=== PATIENT | male | born 1945 | race Caucasian/White ===

== ENCOUNTER 2019-11-27 08:31 | Emergency (ER) | payer OTHER, SELFPAY ==
[2019-11-27] VITALS (10 sets, daily range): BP systolic 118–162; BP diastolic 59–81; PULSE 44–64; RESP 16; TEMP 36.4; O2SAT 93–97
--- NOTE | 2019-11-27 09:01 | DI.CT.S_ITS ---
PROCEDURE: CT ABDOMEN PELVIS WO CON INDICATIONS: kidney stone, flank pain right TECHNIQUE: Noncontrast 5 mm thick sections acquired from the diaphragms to the symphysis. 5 mm thick coronal and sagittal reformats were then performed. For radiation dose reduction, the following was used: automated exposure control, adjustment of mA and/or kV according to patient size. COMPARISON: [facility], CT, KIDNEY/ URETER/BLADDER, 04/30/2010, 15:26. FINDINGS: Image quality: Excellent. Lung bases: Lung bases are clear. Heart is enlarged. Postsurgical changes compatible with a aortic valve replacement noted. Urinary system: Both kidneys are normal in size. 0.5 x 0.7 x 1.0 cm stone noted in the distal right ureter causing severe right sided hydroureteronephrosis. 5 x 7 mm nonobstructing stone noted in the lower pole of the right kidney. 1 cm diameter nonobstructing stone noted in the midpole of the right kidney. Multiple large nonobstructing staghorn calculi noted in the left kidney, left renal calyces and left renal pelvis. Left ureter follows a normal course and normal caliber. Numerous calcified stones noted in dependent portion of the urinary bladder ranging in size from 0.6-1.8 cm. Other solid organs: Liver is normal in size. Gallbladder contains numerous calcified gallstones. Pancreas is normal in contours. Spleen is normal in size. No adrenal nodules. Peritoneum and bowel: Small hiatal hernia. Unenhanced bowel loops demonstrate normal wall thickness and caliber. No free air. Small amount of free right perinephric fluid noted. Nodes and vessels: No retroperitoneal or mesenteric adenopathy by size criteria. Aorta and inferior vena cava are normal in caliber. Scattered atherosclerotic calcifications involving the abdominal and pelvic vasculature. Abdominal wall: No ventral hernias. Pelvis: No free pelvic fluid. No inguinal adenopathy. Right fat-containing inguinal hernia. Bones: No suspicious bony lesions. No vertebral body compression fractures. Spine degenerative disc disease and facet arthropathy. IMPRESSION: 1. 0.5 x 0.7 x 1.0 cm distal right ureteral stone causing severe right-sided hydroureteronephrosis. Small amount of free right perinephric fluid. Forniceal rupture cannot be excluded 2. Multiple nonobstructing right renal stones. 3. Multiple nonobstructing left renal staghorn calculi. 4. Numerous calcified urinary bladder stones. 5. Colonic diverticulosis without evidence of diverticulitis. 6. Cholelithiasis. 7. Cardiomegaly. Dictated by: Vicky Cabrera MD, PhD on 11/27/2019 at 9:42 Approved by: Vicky Cabrera MD, PhD on 11/27/2019 at 9:50
[2019-11-27] MEDS: ONDANSETRON 4 MG/2 ML INJ IV (09:13)
[2019-11-27] MEDS: HYDROMORPHONE 1 MG INJ IV (09:13)
[2019-11-27 09:15] LABS: Add Manual Diff / Slide Review NO; Basophils Absolute Auto 0 /uL (0-100); Basophils Percent Auto 0.4 % (0-2); Eosinophils Absolute Auto 100 /uL (0-450); Eosinophils Percent Auto 1.2 % (2-4); Hematocrit 38.4 % (41-53); Hemoglobin 13.2 g/dL (13.5-17.5); Lymphocytes Absolute Auto 900 /uL (1100-4500); Lymphocytes Percent Auto 11.3 % (25-40); Mean Corpuscular HGB Conc 34.4 % (30-36); Mean Corpuscular Hemoglobin 30.7 PG (26-34); Mean Corpuscular Volume 89.2 fL (80-100); Monocytes Absolute Auto 700 /uL (0-900); Monocytes Percent Auto 8.5 % (3-14); Neutrophils Absolute Auto 6500 /uL (1500-7000); Neutrophils Percent Auto 78.6 % (50-75); Platelet Count 135 X10^3/uL (150-400); Red Blood Cell Count 4.31 X10^6/uL (4.5-5.9); Red Cell Distribution Width 13.3 % (11.6-14.8); White Blood Cell Count 8.3 X10^3/uL (4.5-11.0)
[2019-11-27 09:24] LABS: Alanine Aminotransferase 31 IU/L (<50); Albumin 4.2 g/dL (3.5-5.0); Albumin Globulin Ratio 1.6 (1.0-2.8); Alkaline Phosphatase 77 U/L (38-126); Aspartate Aminotransferase 38 IU/L (17-59); BUN Creatinine Ratio 26.8 (6-22); Bilirubin Total 2.6 mg/dL (0.2-1.3); Blood Urea Nitrogen 37 mg/dL (9-20); Calcium 9.6 mg/dL (8.4-10.2); Carbon Dioxide 25 mmol/L (22-32); Chloride 106 mmol/L (98-107); Estimated Glomerular Filt Rate 50.1 mL/min (>60); Globulin 2.7 g/dL (1.7-4.1); Glucose 97 mg/dL (80-110); HEMOLYSIS 65 (0-50); Potassium 4.8 mmol/L (3.4-5.1); Sodium 137 mmol/L (137-145); Total Protein 6.9 g/dL (6.3-8.2)
--- NOTE | 2019-11-27 10:20 | ED.ABDPAIN ---
HPI - Abdominal Pain General Chief Complaint: Abdominal Pain Stated Complaint: kidney stone Time Seen by Provider: 11/27/19 08:48 Source: patient Mode of arrival: Ambulatory Limitations: no limitations History of Present Illness HPI narrative: CC: Right flank pain HPI: The patient is a 74-year-old male who has a history of kidney stones. He states that he has been having intermittent kidney stones for the last 4 years. Last night he developed flank pain at 4:00 p.m. which is just persisted until this morning. The pain has been constant. He has had no relief from naproxen which he normally takes nor from OxyContin which is an old prescription. He denies any fall or injury. Earlier in the week he noted that he had blood in his urine. The pain on arrival was 8/10 in intensity in was not intense dull achy discomfort. At the time that I am seeing him it is 5 to 6/10. He denies having any fever chills or sweats. He has had no nausea vomiting diarrhea melena hematochezia. He has had no significant urinary frequency or urgency. He has had no kidney infections or bladder infections. Related Data Home Medications Medication Instructions Recorded Confirmed doxazosin 8 mg PO DAILY 11/27/19 11/27/19 metoprolol succinate 25 mg PO DAILY 11/27/19 11/27/19 pravastatin 20 mg PO DAILY 11/27/19 11/27/19 Previous Rx's Medication Instructions Recorded ondansetron HCl [Zofran] 4 mg PO Q6H PRN #15 tab 11/27/19 oxycodone 5 mg PO Q4H PRN #12 tab 11/27/19 tamsulosin [Flomax] 0.8 mg PO BEDTIME #7 cap 11/27/19 tramadol 50 mg PO Q6H #20 tab 11/27/19 Allergies Allergy/AdvReac Type Severity Reaction Status Date / Time No Known Drug Allergies Allergy Verified 11/27/19 09:13 Review of Systems Review of Systems Narrative: Review of systems were all negative except for those mentioned in the history of present illness. Patient History Medical History Hypertension (Acute) Social History Smoking Status: Never smoker Smoking Status: Never smoker alcohol intake frequency: 0-2 drinks per day Substance Use Type: does not use Exam Narrative Exam Narrative: PHYSICAL EXAM: CONSTITUTIONAL: Awake, Alert, Oriented, Coherent, Cooperative in NAD. . HEAD: AT/NC EENT: PERRL, FROM of eyes, NOSE:No epistaxis or nasal drainage MOUTH:Oral mucosa is moist and pink, posterior pharynx is without erythema or exudate. NECK: Supple, no obvious JVD, Trachea is midline without stridor. SPINE: Palpation of the cervical, Thoracic, Lumbar or Sacral spine reveals no gross deformity or tenderness. No CVA tenderness. THORAX: No deformity, retractions, chest wall tenderness. LUNGS: Clear, symmetrical breath sounds without respiratory distress. HEART: Normal heart tones, regular rhythm and rate without murmur. ABDOMEN: Soft, non-tender, no guarding, rebound, rigidity or palpable mass. EXTREMITIES: No edema, deformity, tenderness . SKIN: No rash, bruising, NEURO: Awake, alert, oriented, conversive, cranial nerves II-XII are symmetrical , moves all 4 extremities and is ambulatory. Initial Vital Signs Initial Vital Signs: Vital Signs Temperature 97.6 F 11/27/19 08:48 Pulse Rate 57 L 11/27/19 08:48 Respiratory Rate 16 11/27/19 08:48 Blood Pressure 162/81 H 11/27/19 08:48 Pulse Oximetry 97 11/27/19 08:48 Course Course Course Narrative: 1021: CT reveals that the patient has a 1 cm x 0.7 cm x 1 cm obstructing right ureteral stone with severe right hydronephrosis. I will call Dr. Juan becerra and see if he is available to admit the patient 1230 : Patient is currently pain-free. Dr. Swanson requested a urine culture on the patient before he is discharged. Orders Ordered: ED Orders 11/27/19 12:20 Urinalysis and Microscopic Stat Urine Culture Stat Discontinued Medications Hydromorphone HCl (Dilaudid) 1 mg IV NOW ONE Stop: 11/27/19 08:58 Last Admin: 11/27/19 09:13 Dose: 1 mg Documented by: CAROL ANN Sodium Chloride (Normal Saline 0.9%) 1,000 mls @ 1,000 mls/hr IV BOLUS ONE Stop: 11/27/19 11:51 Last Infusion: 11/27/19 12:12 Dose: 0 mls/hr Documented by: CAROL ANN Admin: 11/27/19 11:00 Dose: 1,000 mls/hr Documented by: NORMAN Ondansetron HCl (Zofran) 4 mg IV NOW ONE Stop: 11/27/19 09:00 Last Admin: 11/27/19 09:13 Dose: 4 mg Documented by: CAROL ANN Vital Signs Vital signs: Vital Signs - 8 hr 11/27/19 08:48 11/27/19 09:10 11/27/19 09:33 Temperature 97.6 F Pulse Rate 57 L 49 L 64 Respiratory Rate 16 Blood Pressure 162/81 H Pulse Oximetry 97 95 94 11/27/19 10:00 11/27/19 10:30 11/27/19 10:31 Temperature Pulse Rate 52 L 49 L 46 L Respiratory Rate Blood Pressure 130/62 Pulse Oximetry 94 93 95 11/27/19 11:00 11/27/19 11:31 Temperature Pulse Rate Respiratory Rate Blood Pressure 142/66 H 132/60 Pulse Oximetry MDM - Abdominal Pain Lab Data Result diagrams: 11/27/19 09:00 11/27/19 09:00 Labs: Lab Results 11/27/19 11/27/19 11/27/19 Range/Units 09:00 09:00 12:20 WBC 8.3 (4.5-11.0) X10^3/uL RBC 4.31 L (4.5-5.9) X10^6/uL Hgb 13.2 L (13.5-17.5) g/dL Hct 38.4 L (41-53) % MCV 89.2 (80-100) fL MCH 30.7 (26-34) PG MCHC 34.4 (30-36) % RDW 13.3 (11.6-14.8) % Plt Count 135 L (150-400) X10^3/uL Neut % (Auto) 78.6 H (50-75) % Lymph % (Auto) 11.3 L (25-40) % [place] % (Auto) 8.5 (3-14) % Eos % (Auto) 1.2 L (2-4) % Baso % (Auto) 0.4 (0-2) % Neut # (Auto) 6500 (6510-7441) /uL Lymph # (Auto) 900 L (2109-5182) /uL [place] # (Auto) 700 (0-900) /uL Eos # (Auto) 100 (0-450) /uL Baso # (Auto) 0 (0-100) /uL Sodium 137 (137-145) mmol/L Potassium 4.8 (3.4-5.1) mmol/L Chloride 106 (98-107) mmol/L Carbon Dioxide 25 (22-32) mmol/L BUN 37 H (9-20) mg/dL Creatinine 1.38 H (0.66-1.25) mg/dL Estimated GFR 50.1 L (>60) mL/min BUN/Creatinine Ratio 26.8 H (6-22) Glucose 97 (80-110) mg/dL Calcium 9.6 (8.4-10.2) mg/dL Total Bilirubin 2.6 H (0.2-1.3) mg/dL AST 38 (17-59) IU/L ALT 31 (<50) IU/L Alkaline Phosphatase 77 (38-126) U/L Total Protein 6.9 (6.3-8.2) g/dL Albumin 4.2 (3.5-5.0) g/dL Globulin 2.7 (1.7-4.1) g/dL Albumin/Globulin Ratio 1.6 (1.0-2.8) Urine Color Yellow Urine Appearance Clear Urine pH 7.0 (4.5-8.0) Ur Specific [place] 1.015 (1.000-1.035) Urine Protein Negative (Negative) Urine Glucose (UA) Negative (Negative) g/dL Urine Ketones 1+ H (NEGATIVE) Urine Occult Blood 3+ H (Negative) Urine Nitrate Negative (Negative) Urine Bilirubin Negative (NEGATIVE) Urine Urobilinogen 0.2 (0.2) E.U./dL Ur Leukocyte Esterase Trace H (NEGATIVE) Urine RBC 10-30/hpf H (0-5/HPF) Urine WBC None seen (0-5/HPF) Ur Squamous Epith Cells 1-5 /hpf (0-5/HPF) Urine Bacteria None seen (None) Ur Culture Indicated? Cult not indicated Point of care testing: Urine Dip Bedside Urine Glucose Negative Bedside Urine Bilirubin - Negative Bedside Urine Ketone ++ 40 Urine Specific [place] 1.015 Bedside Urine Occult Blood +++ Bedside Urine pH 6.5 Bedside Urine Protein +/- 15 Bedside Urine Urobilinogen - Negative Bedside Urine Nitrite - Negative Bedside Urine Leukocytes + 70 Esterase Discharge Plan Departure Patient Disposition: Home Clinical Impression: Ureteral colic, Acute right flank pain, Calculus, ureteral, Hydronephrosis Discharge Date/Time: 11/27/19 13:03 Instructions: DI for Kidney Stones Activity Restrictions/Additional Instructions: 1. Follow-up with Dr. Swanson Urologist to evaluate your obstructed ureter and kidney stone on the right side. 2. Despite the pain medications prescribed if you develop intolerable pain and discomfort uncontrolled by the medications you need to return to the emergency department to be further evaluated. 3. If you developed shortness of breath, fever, persistent nausea and vomiting you need to return to the emergency department. 4. Take the tramadol as prescribed for your pain and discomfort 5. Take the Flomax as prescribed at bedtime 6. Take Tylenol every 6 hours for pain and discomfort. 7. Take oxycodone your breakthrough medications for pain and discomfort. Prescriptions: New tramadol 50 mg tablet 50 mg PO Q6H Qty: 20 RF: 1 tamsulosin [Flomax] 0.4 mg capsule 0.8 mg PO BEDTIME Qty: 7 RF: 0 ondansetron HCl [Zofran] 4 mg tablet 4 mg PO Q6H PRN (Reason: nausea and vomiting) Qty: 15 RF: 0 oxycodone 5 mg tablet 5 mg PO Q4H PRN (Reason: pain) Qty: 12 RF: 0 No Action doxazosin 8 mg tablet 8 mg PO DAILY RF: 0 pravastatin 20 mg tablet 20 mg PO DAILY RF: 0 metoprolol succinate 25 mg tablet extended release 24 hr 25 mg PO DAILY RF: 0 Referrals: Sadia Carbajal PA-C [Primary Care Provider] -
[2019-11-27] MEDS: SODIUM CHLORIDE 0.9% 1,000 ML 1000 ML IV (11:00)
[2019-11-27 13:06] LABS: Bacteria Urine None Seen; WBC Urine None Seen (0-5/HPF)
[2019-11-27 13:24] LABS: Appearance Urine UA CLEAR; Bilirubin Urine UA NEGATIVE (NEGATIVE); Color Urine UA YELLOW; Glucose Urine UA NEGATIVE (Negative); Ketones Urine UA 1+ (NEGATIVE); Leukocyte Esterase Urine UA TRACE (NEGATIVE); Nitrite Urine UA NEGATIVE (Negative); Occult Blood Urine UA 3+ (Negative); Protein Urine UA NEGATIVE (Negative); Specific Gravity Urine UA 1.015 (1.000-1.035); Urobilinogen Urine UA 0.2 E.U./dL (0.2)
[2019-11-27 13:31] LABS: RBC Urine 10-30/HPF (0-5/HPF)
[2019-11-27 13:32] LABS: Culture Indicated Urine Cult Not Indicated; Squamous Epithelial Cell Urine 1-5 /HPF (0-5/HPF)
== END 2019-11-27 13:03 | disposition home or self-care (01) ==
PROVIDERS: Emergency Provider Emergency Medicine; Family Provider Physician Assistant Medical; PCP Physician Assistant
DX: N13.2 Hydronephrosis with renal and ureteral calculous obstruction (principal); Z87.442 Personal history of urinary calculi; R10.9 Unspecified abdominal pain
CPT/HCPCS: 36415; 74176; 80053; 81001; 81003; 85025; 87086; 96361; 96374; 96375; 99284; J1170; J2405

== ENCOUNTER → 2019-12-11 13:59 | Outpatient (CLI) | payer OTHER, SELFPAY ==
--- NOTE | 2019-12-11 14:06 | DI.RAD.S_ITS ---
PROCEDURE: XR KUB INDICATIONS: Kidney Stone TECHNIQUE: One view of the abdomen acquired. COMPARISON: [facility], CT, CT ABDOMEN PELVIS WO CON, 11/27/2019, 9:11. [facility], CR, KUB XRAY (1 VIEW ABDOMEN), 07/12/2013, 10:25. [facility], CR, KUB XRAY (1 VIEW ABDOMEN), 05/01/2013, 10:32. FINDINGS: Surgical changes and devices: None. Bowel: Bowel gas pattern is normal. Soft tissues: The CT scanning performed 11/27/19 had identified numerous calculi within the collecting system of the left kidney, and a relatively small degree of calculi at the collecting system of the right kidney. However, there was severe hydronephrosis on the right associated with a distal right ureteral stone. Unfortunately the bladder also contains a multitude of stones varying in size, and these overlie the expected area of the distal right ureteral stone previously present. Therefore this plain film imaging cannot assess for resolution of hydronephrosis on the right or resolution of the calculus previously identified only several weeks ago within the lower aspect of the right ureter. Visualized solid organ contours appear normal in size. Bones: No suspicious bony lesions. IMPRESSION: Multiple rib urinary tract stones are seen. The bladder calculi present overlie the expected position of the previously documented obstructive distal right ureteral stone producing severe right hydronephrosis. A follow-up CT scan or ultrasound scanning may be warranted for more accurate assessment for presence of hydronephrosis and the distal ureteral stone. CT would be preferred if possible. Dictated by: Gavino Morales M.D. on 12/11/2019 at 15:34 Approved by: Gavino Morales M.D. on 12/11/2019 at 15:37
== END ==
PROVIDERS: Family Provider Physician Assistant Medical; PCP Physician Assistant; Referring Provider Specialist; Visit Provider Specialist
DX: N13.2 Hydronephrosis with renal and ureteral calculous obstruction (principal); N21.0 Calculus in bladder; N23 Unspecified renal colic
CPT/HCPCS: 74018

== ENCOUNTER → 2019-12-18 10:25 | Outpatient (CLI) | payer OTHER, SELFPAY | PROVIDERS: Family Provider Physician Assistant Medical; PCP Physician Assistant; Visit Provider Specialist | DX: N39.0 Urinary tract infection, site not specified (principal); N20.1 Calculus of ureter; N20.0 Calculus of kidney; N40.1 Benign prostatic hyperplasia with lower urinary tract symptoms; N13.8 Other obstructive and reflux uropathy; N52.9 Male erectile dysfunction, unspecified; N43.3 Hydrocele, unspecified; Z87.442 Personal history of urinary calculi | CPT/HCPCS: 51798; 81002; 87086; 99214 ==

== ENCOUNTER → 2020-01-03 09:51 | Outpatient (CLI) | payer OTHER, SELFPAY ==
--- NOTE | 2020-01-03 10:01 | DI.CT.S_ITS ---
PROCEDURE: CT KIDNEY URETER BLADDER (KUB) INDICATIONS: ureteral calculus TECHNIQUE: Noncontrast 5 mm thick sections acquired from the diaphragms to the symphysis. 5 mm thick coronal and sagittal reformats were then performed. For radiation dose reduction, the following was used: automated exposure control, adjustment of mA and/or kV according to patient size. COMPARISON: [facility], CT, CT ABDOMEN PELVIS WO CON, 11/27/2019, 9:11. [facility], CT, KIDNEY/ URETER/BLADDER, 04/30/2010, 15:26. FINDINGS: Image quality: Excellent. Lung bases: Lung bases are clear. Cardiomegaly, with four-chamber enlargement. Previous cardiac surgery. Urinary system: Right kidney: Multiple nonobstructing stones including an upper pole stone measuring approximately 7 mm and a lower pole stone measuring approximately 6 mm. The hydronephrosis which was present on 11/27/19 has resolved. Right ureter: Previous distal ureteral stone no longer present. Normal caliber ureter. Left kidney: Numerous sizable nonobstructive stones, with probable developing partial staghorn calculus. Findings include renal pelvic stones. There is a UPJ stone which now measures approximately 1.4 cm. There is no associated hydronephrosis. Left ureter: Unremarkable Bladder: There are numerous stones in the bladder. No bladder wall thickening. Prostate is enlarged. Other solid organs: Liver is normal in size. Gallbladder contains numerous small stones. There is no gallbladder wall thickening . Pancreas is normal in contours. Spleen is normal in size. No adrenal nodules. Peritoneum and bowel: Unenhanced bowel loops demonstrate normal wall thickness and caliber. No free fluid or air. Sigmoid diverticulosis without evidence of diverticulitis. Nodes and vessels: No retroperitoneal or mesenteric adenopathy by size criteria. Aorta and inferior vena cava are normal in caliber. Abdominal wall: No ventral hernias. Pelvis: No free pelvic fluid. Bilateral inguinal hernias containing fat. Bones: No suspicious bony lesions. No vertebral body compression fractures. IMPRESSION: 1. Interval passage of distal right ureteral stone with resolution of right hydronephrosis. 2. Nonobstructing right renal stones. 3. Extensive nonobstructive left renal stones. A partial staghorn calculus is likely forming. Findings include a 1.4 cm left UPJ stone without hydronephrosis. 4. Numerous bladder stones. 5. 4 chamber cardiomegaly. 6. Prostate enlargement. 7. Bilateral inguinal hernias containing fat. Dictated by: Kushal Reid M.D. on 01/03/2020 at 10:54 Approved by: Kushal Reid M.D. on 01/03/2020 at 11:09
== END ==
PROVIDERS: Family Provider Physician Assistant Medical; PCP Physician Assistant; Referring Provider Physician Assistant; Visit Provider Specialist
DX: N20.1 Calculus of ureter (principal); N20.0 Calculus of kidney; N21.0 Calculus in bladder; K80.20 Calculus of gallbladder without cholecystitis without obstruction; K40.20 Bilateral inguinal hernia, without obstruction or gangrene, not specified as recurrent; N40.0 Benign prostatic hyperplasia without lower urinary tract symptoms; I51.7 Cardiomegaly
CPT/HCPCS: 74176

== ENCOUNTER → 2020-04-01 10:31 | Outpatient (CLI) | payer OTHER, SELFPAY | PROVIDERS: Family Provider Physician Assistant Medical; PCP Physician Assistant; Visit Provider Specialist | DX: N39.0 Urinary tract infection, site not specified (principal); N20.0 Calculus of kidney; N21.0 Calculus in bladder; Z87.442 Personal history of urinary calculi; Z87.448 Personal history of other diseases of urinary system | CPT/HCPCS: 81002; 87086; 99214 ==

== ENCOUNTER 2021-02-02 00:53 | Emergency (ER) | payer OTHER, SELFPAY ==
[2021-02-02 01:08] VITALS: BP 161/77; PULSE 60; RESP 16; TEMP 36.5; O2SAT 98; BMI 25.1
[2021-02-02] MEDS: SODIUM CHLORIDE 0.9% 1,000 ML 1000 ML IV (01:16)
[2021-02-02] MEDS: ONDANSETRON 4 MG/2 ML INJ IV (01:18)
[2021-02-02] MEDS: KETOROLAC 30 MG/ML VIAL IV (01:18)
[2021-02-02 01:21] LABS: Alanine Aminotransferase 30 IU/L (<50); Albumin Globulin Ratio 1.5 (1.0-2.8); Alkaline Phosphatase 85 U/L (38-126); Aspartate Aminotransferase 27 IU/L (17-59); BUN Creatinine Ratio 34.7 (6-22); Bilirubin Total 1.6 mg/dL (0.2-1.3); Blood Urea Nitrogen 34 mg/dL (9-20); Carbon Dioxide 25 mmol/L (22-32); Chloride 106 mmol/L (98-107); Estimated Glomerular Filt Rate > 60.0 mL/min (>60); Globulin 2.6 g/dL (1.7-4.1); Glucose 155 mg/dL (80-110); HEMOLYSIS < 15 (0-50); Lipase 39 U/L (23-300); Potassium 4.5 mmol/L (3.4-5.1); Sodium 139 mmol/L (137-145); Total Protein 6.6 g/dL (6.3-8.2)
[2021-02-02 01:23] LABS: Add Manual Diff / Slide Review NO; Basophils Absolute Auto 100 /uL (0-100); Basophils Percent Auto 1.3 % (0-2); Eosinophils Absolute Auto 100 /uL (0-450); Eosinophils Percent Auto 1.4 % (2-4); Hematocrit 40.8 % (41-53); Hemoglobin 13.7 g/dL (13.5-17.5); Lymphocytes Absolute Auto 800 /uL (1100-4500); Lymphocytes Percent Auto 8.3 % (25-40); Mean Corpuscular HGB Conc 33.5 % (30-36); Mean Corpuscular Hemoglobin 30.2 PG (26-34); Mean Corpuscular Volume 90.2 fL (80-100); Monocytes Absolute Auto 200 /uL (0-900); Monocytes Percent Auto 1.9 % (3-14); Neutrophils Absolute Auto 8400 /uL (1500-7000); Neutrophils Percent Auto 87.1 % (50-75); Platelet Count 159 X10^3/uL (150-400); Red Blood Cell Count 4.53 X10^6/uL (4.5-5.9); Red Cell Distribution Width 13.7 % (11.6-14.8); White Blood Cell Count 9.7 X10^3/uL (4.5-11.0)
--- NOTE | 2021-02-02 01:38 | DI.CT.S_ITS ---
PROCEDURE: CT KIDNEY URETER BLADDER (KUB) INDICATIONS: right flank pain TECHNIQUE: Axial sections were acquired from the lung bases to the pubic symphysis. Coronal and sagittal reformats were performed. For radiation dose reduction, the following was used: automated exposure control, adjustment of mA and/or kV according to patient size. COMPARISON: [facility], CT, CT KIDNEY URETER BLADDER (KUB), 01/03/2020, 9:53. FINDINGS: Image quality: Excellent. Lung bases: Mild dependent atelectasis. No pleural effusion. Heart: Cardiomegaly. Aortic valvular replacement. Coronary artery calcifications. Post median sternotomy. URINARY: Right Kidney: Severe hydroureteronephrosis. Mild stranding surrounding the right kidney. 3 nonobstructing kidney stones. Largest at the superior pole measuring 0.8 cm. Right Ureter: Obstructing calculus in the distal right ureter measuring 1.1 x 0.8 x 0.7 cm. 780 Hounsfield units. Left Kidney: No hydronephrosis. Multiple kidney stones. Several stones within the renal pelvis. Largest measuring 1.4 cm. Left kidney is somewhat atrophic compared to the right. Overall this appears similar to December 2019. Left Ureter: No hydroureter. Bladder: Multiple stones in the urinary bladder (greater than 10). A larger stone measures 1.5 cm. ABDOMEN: Liver: Unremarkable. Gallbladder: Multiple layering gallstones. Gallbladder is not significantly distended. Biliary ducts: Unremarkable. Pancreas: Unremarkable. Spleen: Unremarkable. Adrenal Glands: Unremarkable. Stomach and Bowel: No small bowel obstruction. Diverticulosis. No diverticulitis. The appendix is not seen. Peritoneum: No abnormal intraperitoneal fluid. No free air. Ventral Wall: No hernia. Abdominal Nodes: No enlarged retroperitoneal or mesenteric lymph nodes. Vessels: Aorta and inferior vena cava are normal in size. PELVIS: Pelvic Organs: Bilateral hydroceles. Pelvic Nodes: Unremarkable. Miscellaneous: Right inguinal hernia. The bladder is slightly herniated into this hernia sac. Bones: No compression fracture. Mild to moderate DDD most pronounced at L5-S1. IMPRESSION: 1. Obstructing calculus at the distal right ureter measuring 1.1 x 0.8 x 0.7 cm. Severe right hydroureteronephrosis. 2. Several additional bilateral nonobstructing kidney stones. The left kidney appears somewhat atrophic. 3. Numerous bladder calculi. 4. Cholelithiasis. 5. Right inguinal hernia. 6. Bilateral hydroceles. This report is concordant with the overnight preliminary interpretation. Dictated by: Panchito Day M.D. on 02/02/2021 at 9:56 Approved by: Panchito Day M.D. on 02/02/2021 at 10:08
[2021-02-02] MEDS: HYDROMORPHONE 0.5 MG INJ IV ×2 (02:45→03:21)
[2021-02-02 03:55] VITALS: BP 125/76; PULSE 88; RESP 16; O2SAT 96
[2021-02-02 03:59] LABS: Bacteria Urine None Seen
--- NOTE | 2021-02-02 04:10 | ED_ITS ---
HPI - Back Pain/Injury General Chief Complaint: Back Pain/Injury Stated Complaint: R flank Pain Time Seen by Provider: 02/02/21 01:00 History of Present Illness HPI Narrative: Patient is a 75-year-old male who has history of kidney stones presenting with right-sided kidney stone. He said he was doing well until 730 this evening when he started having right flank pain. His sugar is radiating around the front but this certainly feels like when he other kidney stones. Thinks he had a kidney stone earlier this week on the left knee past without any problem. He is followed by Dr. Swanson for Urology. He was shaking at home. He has had nausea and vomiting as well. No fever or chills. Pain comes goes of. No chest pain. Related Data Home Medications Medication Instructions Recorded Confirmed metoprolol succinate 25 mg 25 mg PO DAILY 11/27/19 04/01/20 tablet,extended release 24 hr pravastatin 20 mg tablet 20 mg PO DAILY 11/27/19 04/01/20 aspirin 81 mg tablet,delayed 81 mg PO DAILY 12/18/19 04/01/20 release (Adult Aspirin Regimen) doxazosin 8 mg tablet 8 mg PO DAILY 12/18/19 04/01/20 Previous Rx's Medication Instructions Recorded ondansetron HCl 4 mg tablet 4 mg PO Q6H PRN #15 tab 11/27/19 (Zofran) oxycodone 5 mg tablet 5 mg PO Q4H PRN #12 tab 11/27/19 tramadol 50 mg tablet 50 mg PO Q6H #20 tab 11/27/19 potassium citrate 10 mEq (1,080 10 meq PO TID #270 tab 04/01/20 mg) tablet,extended release tamsulosin 0.4 mg capsule See Rx Instructions .ROUTE 04/22/20 .COMPLEX #180 cap finasteride 5 mg tablet See Rx Instructions .ROUTE 12/06/20 .COMPLEX #90 tab ondansetron 4 mg disintegrating 4 mg PO Q6HR PRN #10 tab 02/02/21 tablet oxycodone-acetaminophen 5 mg-325 1 tab PO Q6H PRN #10 tab 02/02/21 mg tablet (Percocet) sulfamethoxazole 800 1 tab PO BID 7 Days #14 tab 02/02/21 mg-trimethoprim 160 mg tablet (Bactrim DS) Allergies Allergy/AdvReac Type Severity Reaction Status Date / Time No Known Drug Allergies Allergy Verified 04/01/20 10:34 Review of Systems Review of Systems Narrative: GENERAL: Denies chills, fatigue, malaise, fever, sweats, travel HEENT: Denies sinus pain, ear pain, sore throat, difficulty swallowing, neck pain RESPIRATORY: Denies dyspnea, cough, wheezing, hemoptysis, sputum. CARDIOVASCULAR: Denies chest pain, palpitations, orthopnea, edema GASTROINTESTINAL: See HPI : See HPI MUSCULOSKELETAL: Denies weakness, joint pain, or bony pain SKIN: No rash, no erythema, no pruritus NEUROLOGIC: Denies weakness, dizziness, headache, numbness, change in speech, confusion PSYCHIATRIC: No concerning psychosocial issues. 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 Erectile dysfunction History of bladder stone History of nephrolithiasis History of nephrolithiasis Hypertension Kidney stones Nephrolithiasis Ureteral calculus Surgical History H/O lithotripsy Social History Smoking Status: Never smoker Smoking Status: Never smoker alcohol intake frequency: 0-2 drinks per day Substance Use Type: does not use Exam Initial Vital Signs Initial Vital Signs: Vital Signs Temperature 97.7 F 02/02/21 01:08 Pulse Rate 60 02/02/21 01:08 Respiratory Rate 16 02/02/21 01:08 Blood Pressure 161/77 H 02/02/21 01:08 Pulse Oximetry 98 02/02/21 01:08 GENERAL: Alert 75-year-old male appears to be in pain dry heaving HEENT: Head atraumatic,EOMI, pupils reactive, face symmetric, moist mucous membranes CARDIOVASCULAR: Regular rate and rhythm without murmurs, rubs or gallops. RESPIRATORY: Breath sounds equal bilaterally, no wheezes rales or rhonchi. ABDOMEN: Soft, minimal lower abdominal tenderness no right upper tenderness no epigastric pain no guarding or rebound abdomen is soft : Right CVA tenderness EXTREMITIES: Normal range of motion, no clubbing or edema. Neurovascularly intact NEUROLOGICAL: Alert and oriented x4.Normal gait and speech. SKIN: Warm, dry, no laceration, no petechiae, no rashes or lesions. Course Orders Ordered: ED Orders 02/02/21 01:04 Complete Blood Count AUTO DIFF Stat Comprehensive Metabolic Panel Stat Lipase Stat 02/02/21 01:38 CT kidney ureter bladder (KUB) Stat 02/02/21 03:55 Urine Culture Stat Urine Microscopic Stat Discontinued Medications Hydromorphone HCl (Hydromorphone 0.5 Mg Inj) 0.5 mg IV NOW ONE Stop: 02/02/21 02:38 Last Admin: 02/02/21 02:45 Dose: 0.5 mg Documented by: RAMONA Hydromorphone HCl (Hydromorphone 0.5 Mg Inj) 0.5 mg IV NOW ONE Stop: 02/02/21 03:09 Last Admin: 02/02/21 03:21 Dose: 0.5 mg Documented by: RAMONA Sodium Chloride (Normal Saline 0.9%) 1,000 mls @ 1,000 mls/hr IV CONT PERRI Last Infusion: 02/02/21 02:46 Dose: 0 mls/hr Documented by: Admin: 02/02/21 01:16 Dose: 1,000 mls/hr Documented by: CHRISTINA Ketorolac Tromethamine (Ketorolac 30 Mg/Ml Vial) 30 mg IV NOW ONE Stop: 02/02/21 01:01 Last Admin: 02/02/21 01:18 Dose: 30 mg Documented by: CHRISTINA Ondansetron HCl (Ondansetron 4 Mg/2 Ml Inj) 4 mg IV NOW ONE Stop: 02/02/21 01:01 Last Admin: 02/02/21 01:18 Dose: 4 mg Documented by: CHRISTINA Ondansetron HCl (Ondansetron 4 Mg Odt Prepack) 1 bottle MISC SEEINSTR ONE Stop: 02/02/21 04:46 Last Admin: 02/02/21 04:59 Dose: 1 bottle Documented by: RAMONA Oxycodone/Acetaminophen (Oxycodone/Apap 5/325 Prepack) 1 bottle MISC SEEINSTR ONE Stop: 02/02/21 04:46 Last Admin: 02/02/21 04:59 Dose: 1 bottle Documented by: RAMONA Vital Signs Vital signs: Vital Signs - 8 hr 02/02/21 01:08 02/02/21 03:55 Temperature 97.7 F Pulse Rate 60 88 Respiratory Rate 16 16 Blood Pressure 161/77 H 125/76 Pulse Oximetry 98 96 MDM - Back Pain/Injury Lab Data Result diagrams: 02/02/21 01:04 02/02/21 01:04 Labs: Lab Results 02/02/21 02/02/21 02/02/21 Range/Units 01:04 01:04 03:55 WBC 9.7 (4.5-11.0) X10^3/uL RBC 4.53 (4.5-5.9) X10^6/uL Hgb 13.7 (13.5-17.5) g/dL Hct 40.8 L (41-53) % MCV 90.2 (80-100) fL MCH 30.2 (26-34) PG MCHC 33.5 (30-36) % RDW 13.7 (11.6-14.8) % Plt Count 159 (150-400) X10^3/uL Neut % (Auto) 87.1 H (50-75) % Lymph % (Auto) 8.3 L (25-40) % [place] % (Auto) 1.9 L (3-14) % Eos % (Auto) 1.4 L (2-4) % Baso % (Auto) 1.3 (0-2) % Neut # (Auto) 8400 H (0683-9436) /uL Lymph # (Auto) 800 L (0457-5504) /uL [place] # (Auto) 200 (0-900) /uL Eos # (Auto) 100 (0-450) /uL Baso # (Auto) 100 (0-100) /uL Sodium 139 (137-145) mmol/L Potassium 4.5 (3.4-5.1) mmol/L Chloride 106 (98-107) mmol/L Carbon Dioxide 25 (22-32) mmol/L BUN 34 H (9-20) mg/dL Creatinine 0.98 (0.66-1.25) mg/dL Estimated GFR > 60.0 (>60) mL/min BUN/Creatinine Ratio 34.7 H (6-22) Glucose 155 H (80-110) mg/dL Calcium 10.0 (8.4-10.2) mg/dL Total Bilirubin 1.6 H (0.2-1.3) mg/dL AST 27 (17-59) IU/L ALT 30 (<50) IU/L Alkaline Phosphatase 85 (38-126) U/L Total Protein 6.6 (6.3-8.2) g/dL Albumin 4.0 (3.5-5.0) g/dL Globulin 2.6 (1.7-4.1) g/dL Albumin/Globulin Ratio 1.5 (1.0-2.8) Lipase 39 (23-300) U/L Urine RBC 30-100/hpf H (0-5/HPF) Urine WBC 5-10/hpf H (0-5/HPF) Calcium Oxalate Crystal Occasional H Urine Bacteria None seen (None) Ur Culture Indicated? Specimen cultured Urine Dip Bedside Urine Glucose Negative Bedside Urine Bilirubin - Negative Bedside Urine Ketone +/- 5 Urine Specific [place] 1.025 Bedside Urine Occult Blood +++ Bedside Urine pH 6.0 Bedside Urine Protein + 30 Bedside Urine Urobilinogen - Negative Bedside Urine Nitrite - Negative Bedside Urine Leukocytes + [address] scan - abdomen/pelvis: Radiologist's Impression: CT KUB preliminary report Obstructing 8 mm distal ureteral calculus on the right. Bilateral nephrolithiasis. Urinary bladder calculi. Nonobstructive cholelithiasis. [facility] Narrative Medical decision making narrative: Patient initially given Toradol and Zofran for pain. But continues to have it he is given Dilaudid for further pain control. He is found to have a large 8 mm distal ureteral calculus. He has previously be seen by local Urology. At this time he has no sign of renal failure or infection. At this time pain control and outpatient follow-up. Will start him on Bactrim. Family states he is not taking potassium pills. Discharge Plan Departure Patient Disposition: Home Clinical Impression: Kidney stones Instructions: DI for Kidney Stones Activity Restrictions/Additional Instructions: *You have been diagnosed with kidney stone right-sided 8 mm *What to do: At this time have a median sized kidney stone on the right side. This will likely need some intervention. Please follow-up with Dr. Swanson, call his office 1st thing Wednesday morning. *Continue to take medications as directed--> [facility] [place] Percocet 1-2 tablets every 6 hours if needed for severe pain Zofran 4 mg every 8 hours if needed for nausea or vomiting Motrin 600 mg every 6-8 hours if needed for [id number] Bactrim 1 tablet twice a day for 7--, please hold taking potassium while on this antibiotic. it can cause elevated potassium *Follow up with your primary care provider in 2-3 days *Return to ER if you should have fever, increasing pain, inability to tolerate fluids or any new, worsening or concerning symptoms Prescriptions: New oxycodone-acetaminophen [Percocet] 5-325 mg tablet 1 tab PO Q6H PRN (Reason: pain) Qty: 10 RF: 0 ondansetron 4 mg tablet,disintegrating 4 mg PO Q6HR PRN (Reason: nausea and vomiting) Qty: 10 RF: 0 sulfamethoxazole-trimethoprim [Bactrim DS] 800-160 mg tablet 1 tab PO BID 7 Days Qty: 14 RF: 0 No Action tamsulosin 0.4 mg capsule See Rx Instructions .ROUTE .COMPLEX Qty: 180 RF: 3 finasteride 5 mg tablet See Rx Instructions .ROUTE .COMPLEX Qty: 90 RF: 3 pravastatin 20 mg tablet 20 mg PO DAILY RF: 0 metoprolol succinate 25 mg tablet extended release 24 hr 25 mg PO DAILY RF: 0 tramadol 50 mg tablet 50 mg PO Q6H Qty: 20 RF: 1 ondansetron HCl [Zofran] 4 mg tablet 4 mg PO Q6H PRN (Reason: nausea and vomiting) Qty: 15 RF: 0 oxycodone 5 mg tablet 5 mg PO Q4H PRN (Reason: pain) Qty: 12 RF: 0 aspirin [Adult Aspirin Regimen] 81 mg tablet,delayed release (DR/EC) 81 mg PO DAILY RF: 0 doxazosin 8 mg tablet 8 mg PO DAILY RF: 0 potassium citrate 10 mEq (1,080 mg) tablet extended release 10 meq PO TID Qty: 270 RF: 3 Referrals: Galo Swanson MD [Physician] - Sadia Carbajal PA-C [Primary Care Provider] -
[2021-02-02 04:41] LABS: Calcium Oxalate Crystals Urine Occasional; Culture Indicated Urine Specimen Cultured; RBC Urine 30-100/HPF (0-5/HPF); WBC Urine 5-10/HPF (0-5/HPF)
[2021-02-02] MEDS: OXYCODONE/APAP 5/325 PREPACK 1 BOTTLE MISC (04:59)
[2021-02-02] MEDS: ONDANSETRON 4 MG ODT PREPACK 1 BOTTLE MISC (04:59)
== END 2021-02-02 05:04 | disposition home or self-care (01) ==
PROVIDERS: Emergency Provider Emergency Medicine; Family Provider Physician Assistant Medical; PCP Physician Assistant
DX: N20.0 Calculus of kidney (principal); Z87.442 Personal history of urinary calculi
CPT/HCPCS: 74176; 80053; 81003; 81015; 83690; 85025; 87086; 96361; 96374; 96375; 96376; 99283; 99284; J1170; J1885; J2405